=== PATIENT | male | born 1990 | race Caucasian/White ===

== ENCOUNTER 2017-11-30 19:37 | Emergency (ER) | payer SELFPAY ==
[~2017-11-30] VITALS: Ht 188 cm; Wt 81.6 kg
[2017-11-30] MEDS ORDERED: HYDROcodone-ACET 10/325MG TAB PO ONE (22:30)
[2017-11-30] MEDS ORDERED: HYDROmorphone HCL 2 MG/ML VL IM ONE (23:15)
[2017-11-30] MEDS ORDERED: ONDANSETRON ODT 4 MG TAB PO ONE (23:15)
[2017-12-01 01:48] VITALS: BP 124/51
== END 2017-12-01 02:02 | disposition home or self-care (01) ==
LOC: ER 19:37
DX: S42.022A Displaced fracture of shaft of left clavicle, initial encounter for closed fracture (principal); S52.615A Nondisplaced fracture of left ulna styloid process, initial encounter for closed fracture; S16.1XXA Strain of muscle, fascia and tendon at neck level, initial encounter; V28.4XXA Motorcycle driver injured in noncollision transport accident in traffic accident, initial encounter; Y93.89 Activity, other specified; Y99.8 Other external cause status; Y92.89 Other specified places as the place of occurrence of the external cause
CPT/HCPCS: 29125; 70450; 71250; 72125; 73000; 73060; 73090; 73590; 74176; 96372; 99284; J1170; Q0162

== ENCOUNTER 2019-10-06 14:51 | Emergency (ER) | payer SELFPAY ==
[~2019-10-06] VITALS: Ht 190.5 cm; Wt 77.1 kg
[2019-10-06 15:03] VITALS: BP 130/70
== END 2019-10-06 16:54 | disposition home or self-care (01) ==
LOC: ER 14:51
DX: S80.862A Insect bite (nonvenomous), left lower leg, initial encounter (principal); W57.XXXA Bitten or stung by nonvenomous insect and other nonvenomous arthropods, initial encounter; Y93.89 Activity, other specified; Y92.89 Other specified places as the place of occurrence of the external cause; Y99.8 Other external cause status

== ENCOUNTER 2021-07-07 04:13 | Emergency (ER) | payer MEDICAID, OTHER ==
[~2021-07-07] VITALS: Ht 188 cm; Wt 79.4 kg
[2021-07-07 05:05] LABS: Basophils # (auto) 0.1 10 ^3/uL (0-0.2); Basophils % (auto) 0.3 % (0.0-2.0); Eosinophils # (auto) 0 10 ^3/uL (0-0.8); Hematocrit 40.2 % (41.0-53.0); Lymphocytes # (auto) 1.8 10 ^3/uL (0.4-5.4); Lymphocytes % (auto) 7.2 % (10.0-50.0); Mean Corpuscular Hemoglobin 31.8 pg (28.0-32.0); Mean Corpuscular Hgb Conc. 34.7 g/dL (32.0-36.0); Mean Corpuscular Volume 91.7 fL (80.0-100.0); Monocytes # (auto) 1.5 10 ^3/uL (0-1.3); Monocytes % (auto) 5.9 % (0.0-12.0); Neutrophils % (auto) 86.6 % (37.0-80.0); Red Blood Cells 4.39 10^6/uL (4.5-5.90); Red Cell Distribution Width 13.7 % (11.8-14.3); White Blood Cell 25.4 10^3/uL (4.4-10.8)
[2021-07-07] MEDS ORDERED: SODIUM CHLORIDE 0.9% 2,000 ML IV ONE (05:15)
[2021-07-07 05:18] LABS: Potassium 3.5 mmol/L (3.5-5.1)
[2021-07-07 05:22] LABS: BUN/Creatinine Ratio 13.8; Bilirubin, Total 0.4 mg/dL (0.2-1.0); Total Protein 7.3 g/dL (6.4-8.2)
[2021-07-07 05:24] LABS: INR 1.21 (0.9-1.15)
[2021-07-07] MEDS ORDERED: DOCUSATE SOD 100 MG CAP PO PRN (05:30)
[2021-07-07] MEDS ORDERED: MORPHINE SULFATE 4 MG/ML SYR/VIAL IV ONE (05:30)
[2021-07-07] MEDS ORDERED: TRANEXAMIC ACID 1,000 MG in SODIUM CHL 0.9% 100 ML IV ONE (05:30)
[2021-07-07] MEDS ORDERED: TRANEXAMIC ACID 10 ML ONE (05:30)
[2021-07-07] MEDS ORDERED: BISACODYL 10 MG RECT SUPP PR PRN (05:30)
[2021-07-07] MEDS ORDERED: RHO (D) IMMUNE GLOBULIN 300 MCG INJ IM PRN (05:30)
[2021-07-07] MEDS ORDERED: HYDROcodone-ACET 10/325MG TAB PO PRN (05:30)
[2021-07-07] MEDS: MORPHINE SULFATE 4 MG/ML SYR/VIAL ONE ×2 (05:31→05:35)
[2021-07-07 05:55] VITALS: BP 125/68
[2021-07-07] MEDS ORDERED: SIMETHICONE 80 MG CHEWABLE TABLET PO SCH (06:00)
[2021-07-07] MEDS ORDERED: DOCUSATE CALCIUM 240 MG CAP PO SCH (10:00)
== END 2021-07-07 06:11 | disposition short-term general hospital (02) ==
LOC: EDBD 04:13 → ER 04:13
DX: S00.511A Abrasion of lip, initial encounter (principal); S70.212A Abrasion, left hip, initial encounter; S70.211A Abrasion, right hip, initial encounter; S36.90XA Unspecified injury of unspecified intra-abdominal organ, initial encounter; R94.31 Abnormal electrocardiogram [ECG] [EKG]; V43.52XA Car driver injured in collision with other type car in traffic accident, initial encounter; Y93.89 Activity, other specified; Y92.89 Other specified places as the place of occurrence of the external cause; Y99.8 Other external cause status
CPT/HCPCS: 36415; 36430; 71045; 72040; 72170; 80053; 85025; 85610; 86920; 93005; 96374; 96375; 99285; J2270; J7030; P9016; P9035